=== PATIENT | female | born 1980 | race Caucasian/White ===

== ENCOUNTER 2017-05-29 12:03 | Emergency (ER) | payer OTHER ==
[~2017-05-29] VITALS: Ht 160 cm; Wt 65.9 kg
[~2017-05-29 12:03] MED LIST: DULO60CA44 PO; ESCI10TA PO; GLIP10 PO; METF500T4 PO; TRAZ-147 PO
[2017-05-29] MEDS ORDERED: DICL25TA9 PO (12:12)
[2017-05-29] MEDS ORDERED: DULA0.75 SQ (12:12)
[2017-05-29] MEDS ORDERED: GABA-531 PO (12:12)
[2017-05-29 12:17] LABS: GLUCOSE,POINT OF CARE 428 MG/DL (70-110)
[2017-05-29] MEDS ORDERED: INSULIN REGULAR, HUMAN 100 UNITS/ML IVP ONE (12:30)
[2017-05-29] MEDS ORDERED: SODIUM CHLORIDE 0.9% 1,000 ML IV ONE (12:30)
[2017-05-29] MEDS ORDERED: PERTUSS(ACELL),DIPH,TET VAC/PF 0.5 ML VIAL IM ONE (12:30)
[2017-05-29] MEDS ORDERED: MORPHINE SULFATE 4 MG/ML SYRINGE IVP ONE (12:30)
[2017-05-29 13:03] LABS: ANION GAP 7 mmol/L (8-16); CALCIUM, TOTAL 8.7 mg/dL (8.8-10.5); CARBON DIOXIDE 26 mmol/L (22-29); CHLORIDE 105 mmol/L (98-107); CREATININE 0.96 mg/dL (0.60-1.30); GLOMERULAR FILTR. RATE CALC > 60 mL/min (>60); SODIUM SERUM 138 mmol/L (136-145); UREA NITROGEN, BLOOD 14 mg/dL (7-18)
[2017-05-29 13:52] LABS: GLUCOSE,POINT OF CARE 150 MG/DL (70-110)
[2017-05-29] MEDS ORDERED: KETOROLAC TROMETHAMINE 30 MG/ML VIAL IVP ONE (14:15)
[2017-05-29 14:29] VITALS: BP 114/72
== END 2017-05-29 15:06 | disposition home or self-care (01) ==
LOC: EMS 12:04
DX: S70.01XA Contusion of right hip, initial encounter (principal); S00.81XA Abrasion of other part of head, initial encounter; S80.812A Abrasion, left lower leg, initial encounter; S80.811A Abrasion, right lower leg, initial encounter; E11.65 Type 2 diabetes mellitus with hyperglycemia; Z88.1 Allergy status to other antibiotic agents; Z88.6 Allergy status to analgesic agent; Z88.8 Allergy status to other drugs, medicaments and biological substances; V00.131A Fall from skateboard, initial encounter; Y93.51 Activity, roller skating (inline) and skateboarding; Y92.89 Other specified places as the place of occurrence of the external cause; Y99.8 Other external cause status
CPT/HCPCS: 36415; 73502; 80048; 82948; 82962; 90471; 90715; 96361; 96374; 96375; 99285; J1815; J1885; J2270; J7030